=== PATIENT | male | born 1955 | race Caucasian/White ===

== ENCOUNTER → 2019-05-09 | Outpatient (CLI) | payer BC | LOC: MHCPAIN 15:14 | DX: M79.2 Neuralgia and neuritis, unspecified (principal); R10.31 Right lower quadrant pain | CPT/HCPCS: G0463 ==

== ENCOUNTER → 2019-05-30 | Outpatient (CLI) | payer BC | LOC: MHCPAIN 09:59 | DX: G57.82 Other specified mononeuropathies of left lower limb (principal) | CPT/HCPCS: J1040 ==

== ENCOUNTER → 2019-10-10 | Outpatient (CLI) | payer BC | LOC: MHCPAIN 09:31 | DX: M79.2 Neuralgia and neuritis, unspecified (principal); G89.29 Other chronic pain; R10.31 Right lower quadrant pain; Z98.890 Other specified postprocedural states | CPT/HCPCS: G0463 ==

== ENCOUNTER → 2019-10-25 | Outpatient (CLI) | payer BC | LOC: MHCPAIN 08:20 | DX: G57.82 Other specified mononeuropathies of left lower limb (principal); M54.5 Low back pain; Z98.890 Other specified postprocedural states; R10.31 Right lower quadrant pain | CPT/HCPCS: J1040 ==

== ENCOUNTER → 2020-02-21 | Outpatient (CLI) | payer BC | LOC: MHCPAIN 08:00 | DX: G89.29 Other chronic pain (principal); R10.31 Right lower quadrant pain; M79.2 Neuralgia and neuritis, unspecified | CPT/HCPCS: G0463 ==